=== PATIENT | male | born 1995 | race Caucasian/White ===

== ENCOUNTER 2022-06-30 09:01 | Emergency (ER) | payer SELFPAY ==
[2022-06-30 10:17] LABS: #Basophils 0.1 10x3/uL (0.0-0.2); #Eosinphils 0.3 10x3/uL (0.0-0.5); #Monocytes 0.6 10x3/uL (0.0-1.1); %Basophils 0.8 % (0.0-2.0); %Lymphocytes 32.4 % (18.0-47.0); %Monocytes 10.3 % (0.0-10.0); %Neutrophils 51.2 % (40.0-75.0); Hemoglobin 14.9 g/dL (13.5-17.5); Mean Corpuscular HGB CONC 33.9 g/dL (32.0-36.0); Mean Corpuscular Hemoglobin 28.9 pg (27.0-33.0); Mean Corpuscular Volume 85.4 fl (81.2-95.1); Mean Platelet Volume 10.9 fl (7.4-10.4); Platelet Count 209 10x3/uL (150-450); Red Blood Cell (RBC) Count 5.15 10x6/uL (4.32-5.72)
[2022-06-30 10:33] LABS: ALT (SGPT) 44 U/L (8-55); AST (SGOT) 28 U/L (5-34); Albumin 4.3 g/dL (3.5-5.0); Alkaline Phosphatase 77 U/L (40-110); Anion Gap 11 mmol/L (10-20); BUN (Urea Nitrogen) 11 mg/dL (8.9-20.6); Bilirubin, Total 0.4 mg/dL (0.2-1.2); Calc. Creatinine Clearance 0 mL/min (70-130); Calcium 8.9 mg/dL (7.8-10.44); Carbon Dioxide 26 mmol/L (22-29); Chloride 105 mmol/L (98-107); Estimated GFR 103; Globulin 3.1 g/dL (2.4-3.5); Glucose 94 mg/dL (70-105); Potassium 4.4 mmol/L (3.5-5.1); Protein, Total 7.4 g/dL (6.0-8.3); Sodium 138 mmol/L (136-145)
== END 2022-06-30 11:45 | disposition home or self-care (01) ==
LOC: CSHERS 09:01
DX: K62.5 Hemorrhage of anus and rectum (principal)
CPT/HCPCS: 36415; 80053; 85025; 86850; 86900; 86901; 99283

== ENCOUNTER 2023-11-06 19:22 | Emergency (ER) | payer OTHER ==
[2023-11-06] MEDS ORDERED: Ibuprofen 200 MG TAB ONE (20:03)
[2023-11-06] MEDS ORDERED: Ondansetron ODT 4 MG TAB ONE (20:04)
[2023-11-06] MEDS ORDERED: Acetaminophen 500 MG TAB ONE (20:04)
[2023-11-06 20:48] LABS: SARS-CoV-2 NAA Rapid Test DETECTED (NotDetected)
== END 2023-11-06 20:58 | disposition home or self-care (01) ==
LOC: CSHERS 19:22
DX: U07.1 COVID-19 (principal)
CPT/HCPCS: 99284; Q0162

== ENCOUNTER 2024-10-06 12:25 | Emergency (ER) | payer OTHER ==
[2024-10-06] MEDS ORDERED: Ketorolac Tromethamine 30 MG (1 mL) VIAL ONE (12:54)
[2024-10-06] MEDS ORDERED: Cyclobenzaprine 10 MG TAB ONE (12:54)
[2024-10-06] MEDS ORDERED: Lidocaine 4% Patch ONE (12:54)
== END 2024-10-06 14:45 | disposition home or self-care (01) ==
LOC: CSHERS 12:25
DX: T14.8XXA Other injury of unspecified body region, initial encounter (principal); M54.6 Pain in thoracic spine
CPT/HCPCS: 72072; 96372; 99283; J1885